=== PATIENT | male | born 1965 | race Caucasian/White ===

== ENCOUNTER 2017-11-30 08:00 | Outpatient (CLI) | payer BC, OTHER ==
[2017-11-30 11:13] LABS: BASOPHILS % (AUTO) 0.7 %; EOSINOPHILS # (AUTO) 0.1 10^3/uL (0.0-0.7); EOSINOPHILS % (AUTO) 2.3 %; HGB - HEMOGLOBIN 15.2 g/dL (14.0-18.0); LYMPHOCYTES # (AUTO) 1.5 10^3/uL (1.5-3.5); LYMPHOCYTES % (AUTO) 33.3 %; MEAN CORPUSCULAR HEMOGLOBIN 30.7 pg (27.0-31.0); MEAN CORPUSCULAR HGB CONC 34.4 g/dL (32.0-36.0); MEAN CORPUSCULAR VOLUME 89.4 fL (80.0-94.0); MEAN PLATELET VOLUME 7.8 fL (7.4-11.4); MONOCYTES # (AUTO) 0.4 10^3/uL (0.0-1.0); MONOCYTES % (AUTO) 9.2 %; NEUTROPHILS # (AUTO) 2.5 10^3/uL (1.5-6.6); NEUTROPHILS % (AUTO) 54.5 %; PLT - PLATELET COUNT 188 10^3/uL (130-450); RED BLOOD COUNT 4.94 10^6/uL (4.70-6.10); RED CELL DISTRIBUTION WIDTH 12.9 % (12.0-15.0); WHITE BLOOD COUNT 4.5 x10^3/uL (4.8-10.8)
[2017-11-30 11:32] LABS: ALBUMIN 4.4 g/dL (3.2-5.5); ALBUMIN/GLOBULIN RATIO 1.6 (1.0-2.2); ALKALINE PHOSPHATASE 57 IU/L (42-121); ALT ALANINE AMINOTRANSFERASE 18 IU/L (10-60); AST ASPARTATE AMINOTRANSFERASE 27 IU/L (10-42); BILIRUBIN,TOTAL 0.7 mg/dL (0.2-1.0); BUN - BLOOD UREA NITROGEN 15 mg/dL (6-20); CALCIUM 8.6 mg/dL (8.5-10.3); CARBON DIOXIDE - CO2 29 mmol/L (21-32); CHLORIDE 100 mmol/L (101-111); CHOL/HDL RATIO 3.7 (<5.0); CHOLESTEROL 189 mg/dL; CREATININE 0.8 mg/dL (0.6-1.2); GFR - MDRD 102 (>89); GLUCOSE 93 mg/dL (70-100); HDL CHOLESTEROL 51 mg/dL; LDL CHOLESTEROL,CALCULATED 117 mg/dL; LDL/HDL RATIO 2.3 (<3.6); SODIUM 134 mmol/L (135-145); TOTAL PROTEIN 7.2 g/dL (6.7-8.2); VLDL CHOLESTEROL 21 mg/dL
== END 2017-11-30 08:01 | disposition home or self-care (01) ==
LOC: LAB.R 08:00
PROVIDERS: ATTEND Physician Assistant Medical
DX: Z00.00 Encounter for general adult medical examination without abnormal findings (principal)
CPT/HCPCS: 80053; 80061; 83721; 84443; 85025

== ENCOUNTER 2018-02-14 09:21 | Day surgery (SDC) | payer OTHER ==
[2018-02-14] MEDS ORDERED: LACTATED RINGERS 1,000 ML IV ONE (09:52)
[2018-02-14] MEDS ORDERED: fentaNYL 250 MCG/5 ML VIAL IVP ONE (10:53)
[2018-02-14 12:49] VITALS: BP 130/70
== END 2018-02-14 09:22 | disposition home or self-care (01) ==
LOC: SDS 09:21
PROVIDERS: ATTEND Surgery
PROC: 0DJD8ZZ Inspection of Lower Intestinal Tract, Via Natural or Artificial Opening Endoscopic (ICD-10-PCS; principal; 2018-02-14 10:30)
DX: Z12.11 Encounter for screening for malignant neoplasm of colon (principal); K64.8 Other hemorrhoids; Z86.14 Personal history of Methicillin resistant Staphylococcus aureus infection; Z87.11 Personal history of peptic ulcer disease
CPT/HCPCS: 45330; J3010; J7120

== ENCOUNTER 2018-07-25 10:00 | Outpatient (CLI) | payer OTHER ==
[2018-07-25 15:26] LABS: RHEUMATOID FACTOR NEGATIVE (Negative)
== END 2018-07-25 23:59 | disposition home or self-care (01) ==
LOC: LAB.R 10:00
PROVIDERS: ATTEND Physician Assistant Medical
DX: M25.50 Pain in unspecified joint (principal)
CPT/HCPCS: 85651; 86038; 86140; 86200; 86430

== ENCOUNTER → 2020-02-06 | Outpatient (CLI) | payer BC, OTHER ==
[2020-02-06 18:39] LABS: BASOPHILS % (AUTO) 0.4 %; EOSINOPHILS # (AUTO) 0.1 10^3/uL (0.0-0.7); EOSINOPHILS % (AUTO) 1.3 %; HGB - HEMOGLOBIN 13.3 g/dL (14.0-18.0); LYMPHOCYTES # (AUTO) 1.4 10^3/uL (1.5-3.5); LYMPHOCYTES % (AUTO) 26.1 %; MEAN CORPUSCULAR HEMOGLOBIN 31.1 pg (27.0-31.0); MEAN CORPUSCULAR HGB CONC 33.7 g/dL (32.0-36.0); MEAN CORPUSCULAR VOLUME 92.3 fL (80.0-94.0); MEAN PLATELET VOLUME 9.6 fL (7.4-11.4); MONOCYTES # (AUTO) 0.5 10^3/uL (0.0-1.0); MONOCYTES % (AUTO) 8.7 %; NEUTROPHILS # (AUTO) 3.3 10^3/uL (1.5-6.6); NEUTROPHILS % (AUTO) 62.6 %; PLT - PLATELET COUNT 215 10^3/uL (130-450); RED BLOOD COUNT 4.28 10^6/uL (4.70-6.10); RED CELL DISTRIBUTION WIDTH 12.3 % (12.0-15.0); WHITE BLOOD COUNT 5.3 x10^3/uL (4.8-10.8)
[2020-02-06 19:04] LABS: ALBUMIN 3.7 g/dL (3.2-5.5); ALBUMIN/GLOBULIN RATIO 1.4 (1.0-2.2); BILIRUBIN,TOTAL 0.3 mg/dL (0.2-1.0); CALCIUM 8.8 mg/dL (8.5-10.3); CREATININE 0.8 mg/dL (0.6-1.2); TOTAL PROTEIN 6.4 g/dL (6.7-8.2)
== END ==
LOC: LAB.WCP 15:08
PROVIDERS: ATTEND Nurse Practitioner Family
DX: R10.13 Epigastric pain (principal)
CPT/HCPCS: 36415; 80053; 82150; 83690; 85025

== ENCOUNTER 2020-02-07 08:30 | Outpatient (CLI) | payer OTHER ==
[2020-02-07 10:27] LABS: H. PYLORIS ANTIGEN STL NEGATIVE (Negative)
== END 2020-02-07 23:59 | disposition home or self-care (01) ==
LOC: LAB.R 08:30
PROVIDERS: ATTEND Nurse Practitioner Family
DX: R10.13 Epigastric pain (principal)
CPT/HCPCS: 82274; 87338

== ENCOUNTER 2021-09-08 09:08 | Outpatient (CLI) | payer BC ==
[2021-09-08 09:29] LABS: BASOPHILS % (AUTO) 0.4 %; EOSINOPHILS # (AUTO) 0.1 10^3/uL (0.0-0.7); EOSINOPHILS % (AUTO) 1.7 %; HCT - HEMATOCRIT 44.6 % (42.0-52.0); HGB - HEMOGLOBIN 15.4 g/dL (14.0-18.0); LYMPHOCYTES # (AUTO) 1.3 10^3/uL (1.5-3.5); LYMPHOCYTES % (AUTO) 27.5 %; MEAN CORPUSCULAR HEMOGLOBIN 30.7 pg (27.0-31.0); MEAN CORPUSCULAR HGB CONC 34.5 g/dL (32.0-36.0); MEAN CORPUSCULAR VOLUME 88.8 fL (80.0-94.0); MONOCYTES # (AUTO) 0.4 10^3/uL (0.0-1.0); MONOCYTES % (AUTO) 7.2 %; NEUTROPHILS % (AUTO) 62.8 %; PLT - PLATELET COUNT 205 10^3/uL (130-450); RED BLOOD COUNT 5.02 10^6/uL (4.70-6.10); RED CELL DISTRIBUTION WIDTH 12.5 % (12.0-15.0); WHITE BLOOD COUNT 4.8 x10^3/uL (4.8-10.8)
[2021-09-08 09:48] LABS: ALBUMIN 4.4 g/dL (3.2-5.5); ALBUMIN/GLOBULIN RATIO 1.7 (1.0-2.2); ALKALINE PHOSPHATASE 63 IU/L (42-121); ALT ALANINE AMINOTRANSFERASE 19 IU/L (10-60); AST ASPARTATE AMINOTRANSFERASE 25 IU/L (10-42); BILIRUBIN,TOTAL 0.6 mg/dL (0.2-1.0); BUN - BLOOD UREA NITROGEN 17 mg/dL (6-20); CARBON DIOXIDE - CO2 28 mmol/L (21-32); CHLORIDE 102 mmol/L (101-111); CHOL/HDL RATIO 3.6 (<5.0); CHOLESTEROL 203 mg/dL; GFR - MDRD 78 (>89); GLUCOSE 103 mg/dL (70-100); HDL CHOLESTEROL 57 mg/dL; LDL CHOLESTEROL,CALCULATED 127 mg/dL; LDL/HDL RATIO 2.2 (<3.6); POTASSIUM 4.9 mmol/L (3.5-5.0); SODIUM 139 mmol/L (135-145); TRIGLYCERIDES 94 mg/dL; VLDL CHOLESTEROL 19 mg/dL
[2021-09-08 10:00] LABS: THYROID STIMULATING HORMONE 2.2 uIU/mL (0.34-5.60)
== END 2021-09-08 09:09 | disposition home or self-care (01) ==
LOC: LAB 09:08
PROVIDERS: ATTEND Internal Medicine
DX: Z13.1 Encounter for screening for diabetes mellitus (principal); Z13.220 Encounter for screening for lipoid disorders; Z13.29 Encounter for screening for other suspected endocrine disorder; Z13.0 Encounter for screening for diseases of the blood and blood-forming organs and certain disorders involving the immune mechanism; Z12.5 Encounter for screening for malignant neoplasm of prostate
CPT/HCPCS: 36415; 80053; 80061; 83721; 84153; 84443; 85025

== ENCOUNTER 2022-12-21 09:15 | Outpatient (CLI) | payer BC ==
[2022-12-21 09:45] LABS: BASOPHILS % (AUTO) 0.5 %; EOSINOPHILS # (AUTO) 0.1 10^3/uL (0.0-0.7); EOSINOPHILS % (AUTO) 1.4 %; HCT - HEMATOCRIT 44.4 % (42.0-52.0); HGB - HEMOGLOBIN 15.3 g/dL (14.0-18.0); LYMPHOCYTES # (AUTO) 1.2 10^3/uL (1.5-3.5); LYMPHOCYTES % (AUTO) 26.5 %; MEAN CORPUSCULAR HGB CONC 34.5 g/dL (32.0-36.0); MEAN CORPUSCULAR VOLUME 89.9 fL (80.0-94.0); MEAN PLATELET VOLUME 9.2 fL (7.4-11.4); MONOCYTES # (AUTO) 0.4 10^3/uL (0.0-1.0); MONOCYTES % (AUTO) 8.5 %; NEUTROPHILS # (AUTO) 2.8 10^3/uL (1.5-6.6); NEUTROPHILS % (AUTO) 62.9 %; PLT - PLATELET COUNT 195 10^3/uL (130-450); RED BLOOD COUNT 4.94 10^6/uL (4.70-6.10); WHITE BLOOD COUNT 4.4 x10^3/uL (4.8-10.8)
[2022-12-21 10:03] LABS: ALBUMIN 4.4 g/dL (3.2-5.5); ALBUMIN/GLOBULIN RATIO 1.5 (1.0-2.2); ALKALINE PHOSPHATASE 60 IU/L (42-121); ALT ALANINE AMINOTRANSFERASE 20 IU/L (10-60); AST ASPARTATE AMINOTRANSFERASE 24 IU/L (10-42); BUN - BLOOD UREA NITROGEN 15 mg/dL (6-20); CARBON DIOXIDE - CO2 30 mmol/L (21-32); CHLORIDE 106 mmol/L (101-111); CHOL/HDL RATIO 3.5 (<5.0); CHOLESTEROL 208 mg/dL; CREATININE 0.9 mg/dL (0.6-1.2); GFR - MDRD 87 (>89); GLUCOSE 109 mg/dL (70-100); HDL CHOLESTEROL 59 mg/dL; LDL CHOLESTEROL,CALCULATED 127 mg/dL; LDL/HDL RATIO 2.2 (<3.6); SODIUM 141 mmol/L (135-145); TOTAL PROTEIN 7.4 g/dL (6.7-8.2); TRIGLYCERIDES 112 mg/dL; VLDL CHOLESTEROL 22 mg/dL
[2022-12-21 10:13] LABS: THYROID STIMULATING HORMONE 2.25 uIU/mL (0.34-5.60)
== END 2022-12-21 09:16 | disposition home or self-care (01) ==
LOC: LAB 09:15
PROVIDERS: ATTEND Internal Medicine
DX: Z13.1 Encounter for screening for diabetes mellitus (principal); Z13.0 Encounter for screening for diseases of the blood and blood-forming organs and certain disorders involving the immune mechanism; Z12.5 Encounter for screening for malignant neoplasm of prostate; Z86.59 Personal history of other mental and behavioral disorders
CPT/HCPCS: 36415; 80053; 80061; 83721; 84153; 84443; 85025

== ENCOUNTER 2023-06-09 08:56 | Outpatient (CLI) | payer BC ==
--- NOTE | 2023-06-09 12:56 | XRAY Report ---
PROCEDURE: Hips 2V BILAT INDICATIONS: RIGHT HIP PAIN TECHNIQUE: 2 views of the hip were acquired. COMPARISON: None. FINDINGS: Bones: No fractures or dislocations. No suspicious bony lesions. Severe bilateral hip joint space narrowing, right greater than left, subchondral sclerosis is present. No erosions. Degenerative velazquez ges are present lower lumbar spine. Soft tissues: No suspicious soft tissue calcifications or masses. IMPRESSION: Prominent bilateral hip arthritic change. Reviewed by: Tona Joy MD on 06/09/2023 12:55 PM [facility] Approved by: Tona Joy MD on 06/09/2023 12:55 PM [facility] Station ID: [id number]
--- NOTE | 2023-06-09 12:58 | XRAY Report ---
PROCEDURE: Knee 4 View RT INDICATIONS: RIHT KNEE OSTEOARTHRITIS TECHNIQUE: 4 views of the knee(s) were acquired. COMPARISON: None. FINDINGS: Bones: No fractures or dislocations. No suspicious bony lesions. Moderate to severe right medial as well as moderate medial compartment narrowing. Moderate left and mild right lateral as well as mod erate right patellofemoral compartment narrowing. Particular osteophytes are present. No erosions. Soft tissues: No knee joint effusion. No suspicious soft tissue calcifications or masses. IMPRESSION: Tricompartmental right and left arthritic change Reviewed by: Tona Joy MD on 06/09/2023 12:57 PM PST Approved by: Tona Joy MD on 06/09/2023 12:57 PM PST Station ID: [id number]
== END 2023-06-09 08:57 | disposition home or self-care (01) ==
LOC: DI 08:56
PROVIDERS: ATTEND Physician Assistant
DX: M16.0 Bilateral primary osteoarthritis of hip (principal); M17.0 Bilateral primary osteoarthritis of knee

== ENCOUNTER 2023-10-02 18:13 | Emergency (ER) | payer BC ==
--- NOTE | 2023-10-02 18:38 | ED Physician Documentation ---
PD HPI SKIN - Stated complaint Stated Complaint: DOG BITE RT HAND - Chief complaint Chief Complaint: Wound - Additional information Additional information: 58-year-old male presents emergency department for superficial bite cunha to his right hand after breaking up a dog fight between his neighbors dog and his. There is a superficial puncture injury to the palmar aspect in between the third and fourth digit and superficial laceration to the dorsal aspect of the right fourth finger in between the MIP and DIP. Bleeding is well-controlled he is not any blood thinners he is unsure if he is up-to-date with his tetanus shot. PD PAST MEDICAL HISTORY - Past Medical History Past Medical History: No Cardiovascular: None Respiratory: None Endocrine/Autoimmune: None GI: None : None HEENT: None Psych: None Musculoskeletal: None Derm: None - Past Surgical History Past Surgical History: Yes General: Colonoscopy - Present Medications Home Medications: Ambulatory Orders Medication Instructions Recorded Confirmed Amox/Clav 875/125 [Augmentin 1 tablet PO Q12H 7 Days #14 tablet 10/02/23 875/125 Tab] - Allergies Allergies/Adverse Reactions: Allergies Allergy/AdvReac Type Severity Reaction Status Date / Time No Known Drug Allergies Allergy Verified 10/02/23 18:18 - Social History Does the pt smoke?: No Smoking Status: Never smoker Does the pt drink ETOH?: No Does the pt have substance abuse?: No - Immunizations Immunizations are current?: No Immunizations: TDAP >10years/unknown - POLST Patient has POLST: No PD ED PE NORMAL - Vitals Vital signs reviewed: Yes - General General: Alert and oriented X 3, No acute distress - Extremities Extremities: Other (Right hand: Superficial lacteration to palmar aspect of hand about 4mm, inbetween 3rd and 4th finger. Superficial laceration to dorsal left fourth finger 1cm, inbetween MIP and DIP) Results - Vitals Vitals: Vital Signs - 24 hr 10/02/23 18:18 Temperature 36.8 C Heart Rate 68 Respiratory 16 Rate Blood Pressure 150/85 H O2 Saturation 100 Oxygen O2 Source Room air PD Medical Decision Making - ED course ED course: 58-year-old male presents emergency department for superficial lacerations x 2 to his hand after breaking up a dog fight. Lacerations are not deep enough that need to be repaired, there is a superficial piece of skin that was excised without any additional bleeding or complications. The wounds were anesthetized with 1% lidocaine and thoroughly pressure irrigated with normal saline. I do not see any obvious foreign bodies or dog teeth and the wounds, they are left open with topical bacitracin, gauze, Coban. He was started on Augmentin here in the emergency department and a prescription of Augmentin was sent to his preferred pharmacy. Tetanus shot was updated. He was given return precautions all questions answered and safe for discharge. Departure - Departure Disposition: 01 Home, Self Care Clinical Impression: Dog bite, hand Qualifiers: Encounter type: initial encounter Laterality: right Qualified Code(s): S61.451A - Open bite of right hand, initial encounter; W54.0XXA - Bitten by dog, initial encounter Instructions: ED Bite Dog Prescriptions: Amox/Clav 875/125 [Augmentin 875/125 Tab] 1 tablet PO Q12H 7 Days #14 tablet Comments: Thank you for trusting us with your care, we have evaluated your hand After you have experienced an accidental dog bite injury. We have thoroughly irrigated your hand and placed some topical bacitracin over the dog bite puncture wounds. Keep this area clean and dry wash it with soap and water twice a day and place bacitracin ointment over the wounds and then use a Band-Aid. We have started you on antibiotic Augmentin here in the emergency department and I sent this prescription to [facility] in [place] you will take this twice a day. If you are noticing absolutely no signs or symptoms of infection which include drainage that is yellow or green, redness, swelling, worsening pain then go ahead and stop taking the antibiotics after 4 days. Please come back to the emergency department if you are starting to notice any signs or symptoms of infection even after you have been on the antibiotics. Wishing you a speedy recovery! Forms: PCP List
[2023-10-02] MEDS: AMOX/CLAV 875 MG/125 MG TABLET PO STA (18:48)
[2023-10-02] MEDS: TETANUS/DIPHTHERIA/PERTUSSIS 0.5 ML SYRINGE IM ONE (19:15)
[2023-10-02] MEDS ORDERED: BISACODYL 10 MG SUPP PR ONE (19:25)
[2023-10-02 19:28] VITALS: BP 141/75; O2SAT 99
== END 2023-10-02 19:26 | disposition home or self-care (01) ==
LOC: ED 18:13
DX: S61.411A Laceration without foreign body of right hand, initial encounter (principal); S61.431A Puncture wound without foreign body of right hand, initial encounter; W54.0XXA Bitten by dog, initial encounter; Y93.9 Activity, unspecified; Z23 Encounter for immunization
CPT/HCPCS: 90471; 90715; 99283; A9270